=== PATIENT | male | born 1990 | race Caucasian/White ===

== ENCOUNTER 2019-05-16 17:50 | Emergency (ER) | payer SELFPAY ==
[~2019-05-16] VITALS: Ht 180.3 cm; Wt 72.6 kg
[2019-05-16 17:55] VITALS: BP 103/68
== END 2019-05-16 18:15 | disposition left against medical advice (07) ==
LOC: ED 17:50
DX: F11.20 Opioid dependence, uncomplicated (principal); F12.10 Cannabis abuse, uncomplicated

== ENCOUNTER 2019-10-05 21:06 | Emergency (ER) | payer OTHER ==
[~2019-10-05] VITALS: Ht 167.6 cm; Wt 66.2 kg
[2019-10-05 21:31] VITALS: Ht 167.6 cm; Wt 66.2 kg
[2019-10-06 00:40] VITALS: BP 125/77
== END 2019-10-06 00:40 | disposition home or self-care (01) ==
LOC: ED 21:06
DX: L02.414 Cutaneous abscess of left upper limb (principal)
CPT/HCPCS: J2001